=== PATIENT | male | born 1975 | race Caucasian/White ===

== ENCOUNTER 2017-05-25 20:54 | Emergency (ER) | payer SELFPAY ==
[~2017-05-25] VITALS: Ht 182.9 cm; Wt 65.8 kg
[2017-05-25 20:55] VITALS: BP_SYST 118
--- NOTE | 2017-05-25 21:00 | NUR ---
PT SEEN LEAVING ED, STATING "I DONT NEED THIS , I AM NOT WAITING" PT LEFT WITHOUT BEING SEEN.
== END 2017-05-25 21:00 | disposition left against medical advice (07) ==
LOC: SED 20:54
DX: Z02.83 Encounter for blood-alcohol and blood-drug test (principal)